=== PATIENT | female | born 1965 | race Caucasian/White ===

== ENCOUNTER 2017-06-13 07:15 | Inpatient (IN) | payer OTHER ==
[2017-06-13] MEDS ORDERED: Gabapentin 300 MG Cap PO ONE (07:30)
[2017-06-13] MEDS ORDERED: Scopolamine 1.5 MG Transdermal Patch TOP ONE (07:30)
[2017-06-13] MEDS ORDERED: Acetaminophen 500 MG Tab PO ONE (07:30)
[2017-06-13] MEDS ORDERED: Celecoxib 200 MG Cap PO ONE (07:30)
[2017-06-13] MEDS ORDERED: Dextrose 5%-Lactated Ringers 1,000 ML IV SCH (07:30)
[2017-06-13] MEDS ORDERED: Dexamethasone 4 MG/ML SDV ONE (08:16)
[2017-06-13] MEDS ORDERED: fentaNYL 250 MCG/5 ML SDV ONE (08:16)
[2017-06-13] MEDS ORDERED: Glycopyrrolate 0.2 MG/ML 5 ML MDV ONE (08:16)
[2017-06-13] MEDS ORDERED: Ondansetron 4 MG/2 ML SDV ONE (08:16)
[2017-06-13] MEDS ORDERED: Succinylcholine 200 MG/10 ML MDV ONE (08:16)
[2017-06-13] MEDS ORDERED: Rocuronium 50 MG/5 ML Vial ONE (08:16)
[2017-06-13] MEDS ORDERED: Neostigmine Methylsulfate 1 MG/ML 5 ML Syringe ONE (08:16)
[2017-06-13] MEDS ORDERED: Propofol 200 MG/20 ML SDV ONE (08:16)
[2017-06-13] MEDS ORDERED: cefOXitin 2 GM Vial ONE (08:21)
[2017-06-13] MEDS ORDERED: Midazolam 1 MG/ML 2 ML SDV ONE (08:47)
[2017-06-13] MEDS ORDERED: Lactated Ringers 1,000 ML ONE (08:47)
[2017-06-13] MEDS ORDERED: ceFAZolin 2 GM in Premix Bag 1 BAG IV ONE ×2 (09:30)
[2017-06-13] MEDS ORDERED: Ketamine 500 MG/5 ML MDV IV SCH (09:30)
[2017-06-13] MEDS ORDERED: Lidocaine 0.4%/D5W 2 GM/500 ML BAG IV SCH (09:30)
[2017-06-13] MEDS ORDERED: Lidocaine 2% 100 MG/5 ML Syringe IVPUSH ONE (09:30)
[2017-06-13] MEDS ORDERED: Ropivacaine 56 ML, Dexamethasone 8 MG, EPINEPHrine 0.4 MG, Sodium Chloride 0.9% 21.6 ML NERVRT SCH ×4 (09:30)
[2017-06-13] MEDS ORDERED: fentaNYL 100 MCG/2 ML SDV ONE (10:12)
[2017-06-13] MEDS ORDERED: hydrOXYzine HCl 100 MG/2 ML SDV IM ONE (10:33)
[2017-06-13] MEDS ORDERED: hydrOXYzine HCl 100 MG/2 ML SDV IM PRN (13:00)
[2017-06-13] MEDS ORDERED: Ondansetron 4 MG/2 ML SDV IVPUSH PRN (13:00)
[2017-06-13] MEDS ORDERED: Labetalol 20 MG/4 ML Syringe IVPUSH PRN (13:00)
[2017-06-13] MEDS ORDERED: Metoclopramide 10 MG/2 ML SDV IVPUSH PRN (13:00)
[2017-06-13] MEDS ORDERED: diphenhydrAMINE 50 MG/ML SDV IVPUSH PRN (13:00)
[2017-06-13] MEDS: MVI, Adult with Vitamin K 10 ML, Thiamine 200 MG, Chromium/Copper/Mang/Selen/Zn 1 ML in... IV SCH ×8 (13:27→17:10)
[2017-06-13] MEDS ORDERED: Pantoprazole 40 MG Vial IVPUSH SCH (14:00)
[2017-06-13] MEDS: cefOXitin 2 GM in Sodium Chloride 0.9% 50 ML IV SCH ×2 (15:03→20:05)
[2017-06-13] MEDS: SCOPOLAMINE PATCH CHECK TOP SCH (15:04)
[2017-06-13] MEDS: Acetaminophen Soln 650 MG/20.3 ML UD Cup PO SCH ×2 (15:05→22:08)
[2017-06-13] MEDS: Gabapentin 250 MG/5 ML Solution ML 470 ML Bottle PO SCH ×2 (15:10→20:05)
[2017-06-13] MEDS: Heparin Sodium 5,000 Units/ML Vial SUBCUT SCH (17:10)
[2017-06-13] MEDS: Dextrose 5%-Lactated Ringers 1,000 ML IV SCH (19:53)
[2017-06-13] MEDS ORDERED: Iohexol 647 MG/ML 50 ML SDV PO SCH (23:45)
[2017-06-14] MEDS: Dextrose 5%-Lactated Ringers 1,000 ML IV SCH (02:21)
[2017-06-14] MEDS: cefOXitin 2 GM in Sodium Chloride 0.9% 50 ML IV SCH (02:26)
[2017-06-14] MEDS: Acetaminophen Soln 650 MG/20.3 ML UD Cup PO SCH ×4 (03:26→21:02)
[2017-06-14] MEDS: Heparin Sodium 5,000 Units/ML Vial SUBCUT SCH ×2 (05:18→17:24)
[2017-06-14] MEDS ORDERED: Dextrose 5%-Lactated Ringers 1,000 ML IV SCH (07:49)
[2017-06-14] MEDS ORDERED: Ondansetron 4 MG Tab.DIS PO PRN (07:51)
--- NOTE | 2017-06-14 09:21 | CR ---
Limited upper GI The patient is status post Ramesh-en-Y gastric bypass. There are left upper quadrant drains in place. T here is no extravasation of contrast. The gastric pouch empties into the Ramesh limb. There is mild dis tention of the Ramesh limb. Contrast is not visualized beyond the jejunojejunal anastomosis. Impression: 1. Status post Ramesh-en-Y gastric bypass. Mild distention of the Ramesh limb.
--- NOTE | 2017-06-14 10:26 | PN ---
DATE OF SERVICE: 06/14/2017 SUBJECTIVE: Aliyah is postop day #1. She has been up ambulating. Vital signs have been stable. Pain has been controlled. Her oral intake was 830. Urine output was 2500. JULIEN drain put out 95 mL of a light pink serosanguineous drainage. REVIEW OF SYSTEMS: Remainder of review of systems negative for any pertinent positives and negatives. OBJECTIVE: GENERAL: Aliyah Vail is a 52-year-old female. She is alert and orientated. VITAL SIGNS: TPR is 98.5, 60, 16; blood pressure 150/72. HEENT: Negative. NECK: Supple. HEART: Regular rate and rhythm. LUNGS: Clear. ABDOMEN: Dressings dry and intact. Abdominal binder is on. EXTREMITIES: Without peripheral edema. ASSESSMENT: Laparoscopic gastric bypass, liver biopsy, repair of diaphragmatic hernia and excision of mediastinal lipoma for morbid obesity, hepatomegaly, diaphragmatic hernia, and mediastinal lipoma. Date of surgery 06/13/2017, Jacob Mccoy MD. PLAN: 1. Turn IV rate down to 100 mL per hour. 2. May saline lock IV if oral intake adequate. 3. Step-2 gastric bypass diet without cereal. 4. Change Tylenol liquid to chewable. 5. Home medications restarted were Prozac 10 mg p.o. daily. 6. Good pulmonary toilet. 7. We will evaluate p.r.n. or in a.m. Carmen Salomon PA-C /[id number]
[2017-06-14] MEDS: Celecoxib 200 MG Cap PO SCH (10:35)
[2017-06-14] MEDS: Gabapentin 250 MG/5 ML Solution ML 470 ML Bottle PO SCH ×3 (10:35→20:58)
[2017-06-14] MEDS: FLUoxetine 10 MG Cap PO SCH (10:36)
[2017-06-14] MEDS: SCOPOLAMINE PATCH CHECK TOP SCH (10:37)
[2017-06-14] MEDS ORDERED: Pantoprazole 40 MG Delayed-Release Granules 1 Packet PO SCH (14:00)
[2017-06-14] MEDS ORDERED: MVI, Adult with Vitamin K 10 ML, Thiamine 200 MG, Chromium/Copper/Mang/Selen/Zn 1 ML in... IV SCH ×4 (16:00)
[2017-06-15] MEDS: Heparin Sodium 5,000 Units/ML Vial SUBCUT SCH (05:12)
[2017-06-15] MEDS: Acetaminophen Soln 650 MG/20.3 ML UD Cup PO SCH ×2 (05:12→11:06)
[2017-06-15] MEDS: Celecoxib 200 MG Cap PO SCH (08:10)
[2017-06-15] MEDS ORDERED: Cyanocobalamin (Vitamin B12) 1,000 MCG/ML SDV IM ONE (09:00)
[2017-06-15] MEDS: FLUoxetine 10 MG Cap PO SCH (11:05)
[2017-06-15] MEDS: Gabapentin 250 MG/5 ML Solution ML 470 ML Bottle PO SCH (11:05)
[2017-06-15] MEDS: SCOPOLAMINE PATCH CHECK TOP SCH (11:05)
--- NOTE | 2017-06-18 11:19 | DISCH ---
FINAL DIAGNOSES: 1. Morbid obesity. 2. Marked hepatomegaly. 3. Paraesophageal diaphragmatic hernia. 4. Mediastinal lipoma. Other past medical history includes migraines and mood disorder. OPERATIVE PROCEDURES: Done on 06/13/2017, laparoscopic Ramesh-en-Y gastric bypass with long limb gastroenterostomy with liver biopsy, repair of paraesophageal diaphragmatic hernia, and excision of mediastinal lipoma. SUMMARY: This is a 52-year-old female with longstanding morbid obesity and increasingly significant comorbidities. After preoperative evaluation and discussion, she wished to proceed with a gastric bypass procedure. This was done on the date of admission. Postoperatively, no significant problems were noted. She is tolerating a step-2 diet and will be discharged today. She lives quite a bit away from [place], and the plan will be to have her remove her sutures at her home clinic on June 24, and then she will be following with Carmen Salomon at [facility] on July 02. We will have her stay on a step-2 diet until Saturday the and then begin with a step-3 diet at that time, and also at that time, she would be resuming her vitamins and supplements. Otherwise, medications will continue as preoperatively with the addition of gabapentin 300 mg t.i.d. x2 weeks and followup will be initially with her personal clinic in [place] on June 24 for suture removal and then Carmen Salomon at [facility] on July 02.
--- NOTE | 2017-06-24 13:29 | OR ---
DATE OF PROCEDURE: 06/13/2017 PREOPERATIVE DIAGNOSIS: Morbid obesity. POSTOPERATIVE DIAGNOSES: 1. Morbid obesity. 2. Marked hepatomegaly. 3. Paraesophageal diaphragmatic hernia. 4. Mediastinal lipoma. OPERATIVE PROCEDURE: 1. Laparoscopic Ramesh-en-Y gastric bypass with long limb gastroenterostomy (71570). 2. Francis-Cut needle liver biopsy (53358). 3. Paraesophageal diaphragmatic hernia (02730). 4. Excision of mediastinal lipoma (52834). ANESTHESIA: General. WASHER MEAT: Carmen Salomon PA-C. INDICATION FOR PROCEDURE: This is a 52-year-old presenting with longstanding morbid obesity and increasingly significant comorbidities. After preoperative evaluation and discussion, she wished to proceed with a gastric bypass procedure. Potential risks including bleeding, infection, leaks from various GI tract closures, problems with bowel obstruction over time, as well as possibility of cardiopulmonary, septic, or hemorrhagic complications leading to were discussed, and the patient wishes to proceed. DETAILS OF PROCEDURE: The patient was taken to the operating room, and after general endotracheal anesthesia was induced, she was placed in a lithotomy position. The orogastric tube was placed and the abdomen prepped and draped. At 15 cm inferior, 5 cm left of xiphoid process, a transverse incision was made and the peritoneal cavity entered under direct vision with an Optiview trocar inflated to 15 mmHg pressure with CO2. Upon insertion of the laparoscope, no underlying trocar insertion site injuries were seen. Following this, bilateral subcostal transversus abdominis plane blocks were placed using standard solution with direct visualization of the needle from within, confirming adequate location of the injection. Following this, 5 additional trocars were placed across the upper and mid abdomen and general exploration undertaken. The patient was noted to have marked hepatomegaly with liver volume being roughly 2 to 3 times normal, liver grossly fatty infiltrated. Francis-Cut needle biopsies were obtained from the left lobe of the liver. Minimal bleeding from the biopsy sites was controlled with electrocautery. At this point, the omentum was divided in the midline up to the level of the transverse colon. This allowed identification of the small bowel to the ligament of Treitz. Small bowel was then traced out 200 cm distal to that point and was divided transversely with a RONA stapler. Small bowel was then traced out an additional 200 cm, where the [id number] enteroenterostomy was accomplished with internal firing of the Endo-RONA 60 mm stapler. Common opening was then closed transversely with the same stapler, angles anastomosed, and mesenteric defect approximated with some 0 Ethibond stitch, along with fibrin sealant. Divided end of the Ramesh limb was then from the mesentery for a few centimeters, which allowed an antecolic positioning of the Ramesh limb up to the level of the gastroesophageal junction without tension. The liver was then retracted anteriorly, and the patient was noted to have a moderate-sized paraesophageal diaphragmatic hernia. This included some perigastric fat, some gastric fundus, along with the tongue of omentum. The hernia was reduced and the peritoneum overlying it incised and reflected downward. During the course of the crural dissection, a mediastinal lipoma was encountered, and to facilitate closure of the diaphragmatic hernia, the mediastinal lipoma was excised and sent as a separate specimen. The diaphragmatic hernia was then repaired anteriorly with a series of 0 Ethibond sutures, reinforced with PTFE pledgets. The gastrointestinal balloon catheter was then inflated to 15 mL and pulled up snugly against the EG junction. The gastric wall over the apex balloon was then marked with electrocautery and balloon catheter deflated and pulled up from the esophagus. The lesser omental tissue adjacent to the gastric cardia was incised, allowing the dissection behind the stomach at that level. Pouch formation was initiated with a transverse firing of the RONA stapler at the cauterized amaris on the gastric cardia. Pouch was then completed with 3 additional firings of RONA stapler up to and through the angle of His. Upon completion of the pouch, both staple lines were noted to be intact. At this point, an anvil of an EEA stapler was attached to the [place] sump type tube. The latter was brought down through the mouth, taken out through a small opening in the gastric pouch, allowing the anvil likewise to be pulled down to within the gastric pouch. The divided end of the Ramesh limb was then opened and the main body of the EEA stapler passed several centimeters into the lumen of the small bowel, brought up the anvil and united with it, thus creating the gastrojejunostomy. Upon removal of the stapler, double donuts of mucosa were noted within it. The small bowel was closed off with a vascular staple line. Gastrojejunostomy was reinforced with some 3-0 Vicryl seromuscular stitch, along with fibrin sealant. Leak test was accomplished with injection of 120 mL of air in the gastric pouch while submerged in cefoxitin-containing saline solution. No leaks were identified. Following this, a single Drew-Staples drain was taken out through the left lateral trocar site and positioned adjacent to gastrojejunostomy and from there up into the splenic fossa. With no further problems noted, trocars were removed and the peritoneal cavity deflated. The incisions were closed with some 4-0 Vicryl skin stitch, as was the drain affixed and the dressing applied. The patient was taken to the recovery room in satisfactory condition. Physician medical assistant instructor, Carmen Salomon, played an essential role in assisting in this case, helping to position the patient, retract structures as needed, as well as suturing and cutting sutures when indicated. Her presence improved patient safety and decreased the operative time. Jacob Mccoy MD /[id number]
== END 2017-06-15 13:30 | disposition home or self-care (01) | DRG 621 ==
LOC: JP.SDS 07:15 → JP.SDSSCHI 07:15 → EDSTATUS 09:00 → JP.2SS 11:15
PROVIDERS: ADMIT Surgery; ATTEND Surgery
PROC: 0D164ZA Bypass Stomach to Jejunum, Percutaneous Endoscopic Approach (ICD-10-PCS; principal; 2017-06-13)
PROC: 0FB24ZX Excision of Left Lobe Liver, Percutaneous Endoscopic Approach, Diagnostic (ICD-10-PCS; 2017-06-13)
PROC: 0BQT4ZZ Repair Diaphragm, Percutaneous Endoscopic Approach (ICD-10-PCS; 2017-06-13)
PROC: 0WBC4ZX Excision of Mediastinum, Percutaneous Endoscopic Approach, Diagnostic (ICD-10-PCS; 2017-06-13)
PROC: 3E0T3BZ Introduction of Anesthetic Agent into Peripheral Nerves and Plexi, Percutaneous Approach (ICD-10-PCS; 2017-06-13)
DX: E66.01 Morbid (severe) obesity due to excess calories (principal); Z68.41 Body mass index [BMI] 40.0-44.9, adult; R16.0 Hepatomegaly, not elsewhere classified; K44.9 Diaphragmatic hernia without obstruction or gangrene; D17.4 Benign lipomatous neoplasm of intrathoracic organs; F39 Unspecified mood [affective] disorder
CPT/HCPCS: 36415; 74240; 74240-26; 80053; 82962; 83735; 85027; 86850; 86900; 86901; 88304; 88307; 88313; 94762; A9270-GY; C9113; J0171; J0330; J0690; J0694; J1100; J1644; J2001; J2250; J2405; J2704; J2710; J2795; J3010; J3410; J3411; J3420; J7030; J7040; J7042; J7050; J7120; Q9967